=== PATIENT | male | born 1945 | race Caucasian/White ===

== ENCOUNTER → 2022-11-27 | Outpatient (CLI) | payer MEDICARE ==
[~2022-11-27] MED LIST: PROHANCE 279.3MG/ML 5ML VIAL As Ordered ONE
== END ==
LOC: M RAD 10:06
DX: E27.8 Other specified disorders of adrenal gland (principal)
CPT/HCPCS: 74183; A9576

== ENCOUNTER → 2023-11-26 | Outpatient (CLI) | payer MEDICARE | LOC: M WUC 11:59 | PROVIDERS: ATTEND Student in an Organized Health Care Education/Training Program | DX: M79.671 Pain in right foot (principal) ==

== ENCOUNTER → 2023-12-01 | Outpatient (CLI) | payer MEDICARE ==
[~2023-12-01] MED LIST changes: +ISOVUE-370 76% 100ML VIAL As Ordered ONE; -PROHANCE 279.3MG/ML 5ML VIAL As Ordered ONE
== END ==
LOC: M RAD 09:21
PROVIDERS: ATTEND Family Medicine
DX: C64.2 Malignant neoplasm of left kidney, except renal pelvis (principal); K80.80 Other cholelithiasis without obstruction; K57.90 Diverticulosis of intestine, part unspecified, without perforation or abscess without bleeding
CPT/HCPCS: 74178; Q9967

== ENCOUNTER → 2025-01-17 | Outpatient (CLI) | payer MEDICARE ==
[~2025-01-17] MED LIST changes: +ISOVUE-370 76% 100 ML VIAL As Ordered ONE; -ISOVUE-370 76% 100ML VIAL As Ordered ONE
== END ==
LOC: M RAD 09:44
DX: N28.89 Other specified disorders of kidney and ureter (principal); N28.1 Cyst of kidney, acquired
CPT/HCPCS: 74178; Q9967

== ENCOUNTER 2025-02-21 11:28 | Emergency (ER) | payer MEDICARE ==
[~2025-02-21] VITALS: Ht 193 cm; Wt 109.4 kg
[2025-02-21 11:30] VITALS: BP 144/77; TEMP 96.8; O2SAT 98
[2025-02-21] MEDS ORDERED: CHLO125TA PO (11:47)
[2025-02-21] MEDS ORDERED: VALS1TAB68 PO ×2 (11:47→13:06)
[2025-02-21] MEDS ORDERED: IRBE300T12 PO (11:47)
[2025-02-21] MEDS ORDERED: FAMO1TAB11 PO (11:47)
[2025-02-21] MEDS ORDERED: OMEP40CA5 PO (11:47)
[2025-02-21] MEDS ORDERED: ROSU20TA86 PO (11:47)
[2025-02-21] MEDS ORDERED: FINA5TAB2 PO (11:47)
[2025-02-21] MEDS ORDERED: LEVO125T4 PO (11:47)
[2025-02-21] MEDS ORDERED: AMLO1TAB25 PO (11:47)
[2025-02-21 12:26] LABS: BASO # 0.1 10^3/uL (0.0-0.2); BASO % 0.6 % (0.0-1.0); EOS # 0.5 10^3/uL (0.0-0.5); EOS % 5.5 % (0.0-3.0); LYMPH # 0.9 10^3/uL (1.5-5.0); LYMPH % 11.0 % (24.0-44.0); MONO # 0.8 10^3/uL (0.0-0.8); MONO % 9.7 % (2.0-8.0); NEUTROPHILS # 6.3 10^3/uL (1.5-8.5); NEUTROPHILS % 72.8 % (36.0-66.0); PLATELET COUNT, AUTOMATED 220 10^3/uL (150-450)
[2025-02-21 12:39] LABS: INR 1.04
[2025-02-21 12:46] LABS: CK-MB VALUE MASS 3.3 NG/ML (<3.6)
[2025-02-21 12:48] LABS: CPK CREATINE PHOSPHOKINASE 252.0 U/L (46-171); MB/CK RELATIVE INDEX 1.3 (< OR =4)
[2025-02-21] MEDS: ASPIRIN 81 MG CHEWABLE TABLET PO ONE (12:48)
[2025-02-21 12:49] LABS: ALT/SGPT 18.0 U/L (7.0-40); AST/SGOT 22.0 U/L (<34); CALCIUM LEVEL 9.0 MG/DL (8.3-10.6); CARBON DIOXIDE LEVEL 29.0 MMOL/L (20-31); CHLORIDE LEVEL 101.0 MMOL/L (98-107); CREATININE FOR GFR 1.26 MG/DL (0.70-1.30); GLOMERULAR FILTRATION RATE 58.0 (>42); POTASSIUM SERUM 3.5 MMOL/L (3.5-5.1); SODIUM LEVEL 141.0 MMOL/L (136-145)
[2025-02-21 12:50] LABS: FREE T4 0.99 NG/DL (0.89-1.76)
[2025-02-21] MEDS ORDERED: CETI-24 PO (13:06)
[2025-02-21] MEDS ORDERED: CHOL62.52 PO (13:06)
[2025-02-21] MEDS ORDERED: HOME MED LIST COMPLETE! XX SCH (13:10)
[2025-02-21] MEDS ORDERED: ISOVUE-370 76% 100 ML VIAL As Ordered ONE (13:26)
[2025-02-21 13:56] LABS: CK-MB VALUE MASS 2.8 NG/ML (<3.6); CPK CREATINE PHOSPHOKINASE 238.0 U/L (46-171); MB/CK RELATIVE INDEX 1.17 (< OR =4)
[2025-02-21] MEDS ORDERED: ONDANSETRON 4MG 2ML VIAL IV ONE (14:55)
== END 2025-02-21 16:00 | disposition home or self-care (01) ==
LOC: M ED 11:28
DX: R07.9 Chest pain, unspecified (principal); R00.1 Bradycardia, unspecified; J98.11 Atelectasis; J91.8 Pleural effusion in other conditions classified elsewhere; E11.9 Type 2 diabetes mellitus without complications; K21.9 Gastro-esophageal reflux disease without esophagitis; I12.9 Hypertensive chronic kidney disease with stage 1 through stage 4 chronic kidney disease, or unspecified chronic kidney disease; E78.5 Hyperlipidemia, unspecified; N18.9 Chronic kidney disease, unspecified; C23 Malignant neoplasm of gallbladder; Z79.899 Other long term (current) drug therapy
CPT/HCPCS: 36415; 71045; 71275; 80048; 80076; 82550; 82553; 83690; 84439; 84443; 84484; 85025; 85610; 85730; 93005; 93041; 94760; 99284; Q9967